=== PATIENT | female | born 1970 | race Caucasian/White ===

== ENCOUNTER 2019-02-21 19:24 | Emergency (ER) | payer OTHER ==
--- NOTE | 2019-02-21 20:06 | Emergency Department Report ---
Blank Doc - Documentation Documentation: 48 y/o female comes in for tingling in hand and weakness.
--- NOTE | 2019-02-21 23:02 | Emergency Department Report ---
ED General Adult HPI - General Chief complaint: Weakness Stated complaint: BODY NUMBED Time Seen by Provider: 02/21/19 21:51 Source: patient Mode of arrival: Ambulatory Limitations: No Limitations - History of Present Illness Initial comments: translated by her son Pt is 48 yo female who presents to the ED with c/o tingling in the bilateral hands that began a month ago. She states that occasionally she also has a tingling sensation in BLE. She states her symptoms feel worse at night. The patient states occasionally she also has some dizziness upon standing. She has no dizziness currently. SHe denies any CP, SOB, fall, trauma, injury, SUN, vision changes, gait disturbance, speech disturbance, back or neck injury, or back or neck pain. Her only PMHx is HTN and she takes telmisartan and hctz. She has not seen a primary care doctor. - Related Data Allergies Allergy/AdvReac Type Severity Reaction Status Date / Time No Known Allergies Allergy Verified 02/21/19 20:13 ED Review of Systems ROS: Stated complaint: BODY NUMBED Other details as noted in HPI Comment: All other systems reviewed and negative ED Past Medical Hx - Past Medical History Previous Medical History?: No - Surgical History Past Surgical History?: No - Social History Smoking Status: Never Smoker Substance Use Type: None ED Physical Exam - General Limitations: No Limitations General appearance: alert, in no apparent distress - Head Head exam: Present: atraumatic, normocephalic - Eye Eye exam: Present: normal appearance, PERRL, EOMI - ENT ENT exam: Present: mucous membranes moist - Neck Neck exam: Present: normal inspection, full ROM. Absent: tenderness - Respiratory Respiratory exam: Present: normal lung sounds bilaterally. Absent: respiratory distress, wheezes, rales, rhonchi, stridor, chest wall tenderness, accessory muscle use, decreased breath sounds, prolonged expiratory - Cardiovascular Cardiovascular Exam: Present: regular rate, normal rhythm, normal heart sounds. Absent: systolic murmur, diastolic murmur, rubs, gallop - Neurological Exam Neurological exam: Present: alert, oriented X3, CN II-XII intact, normal gait, other (normal heel to todd, normal finger to nose, 5/5 strength in the BUE/BLE, sensation intact, no focal neuro deficit, good pulses throughout). Absent: motor sensory deficit - Psychiatric Psychiatric exam: Present: normal affect, normal mood - Skin Skin exam: Present: warm, dry, intact ED Course Vital Signs 02/21/19 02/22/19 19:58 00:52 Temperature 98.3 F Pulse Rate 72 Respiratory 17 17 Rate Blood Pressure 136/82 Blood Pressure 129/84 [Left] O2 Sat by Pulse 96 98 Oximetry ED Medical Decision Making - Radiology Data Radiology results: report reviewed PROCEDURE: CT CERVICAL SPINE WO CON TECHNIQUE: Computerized tomography of the cervical spine was performed from the skull base to T1 without contrast material. CT DOSE LENGTH PRODUCT: 458.8 mGycm HISTORY: dizziness, tingling in the hands/feet COMPARISONS: None . FINDINGS: The alignment of the vertebral segments is normal. The heights of the vertebral bodies and the disc spaces are maintained. No acute fracture or dislocation of the cervical spine. The spinal canal is adequate at all levels. IMPRESSION: Normal CT cervical spine . This document is electronically signed by Laurita Cabrales DO., February 22 2019 12:11:48 AM ET PROCEDURE: CT HEAD/BRAIN WO CON TECHNIQUE: Computerized tomography of the head was performed without contrast material. CT DOSE LENGTH PRODUCT: 805.4 mGycm HISTORY: dizziness, tingling in the hands/feet COMPARISONS: None . FINDINGS: Skull and scalp: Normal . Paranasal sinuses: Normal . Ventricles and subarachnoid spaces: Normal . Cerebrum: No evidence of hemorrhage, acute infarction or mass . Cerebellum and brainstem: No evidence of hemorrhage, acute infarction or mass . Vasculature: Normal . Other: None . ASPECTS: 10 IMPRESSION: Normal Examination . This document is electronically signed by Laurita Cabrales DO., February 22 2019 12:10:19 AM ET - Medical Decision Making translated by her son Pt is 48 yo female who presents to the ED with c/o tingling in the bilateral hands that began a month ago. She states that occasionally she also has a tingling sensation in BLE. She states her symptoms feel worse at night. The patient states occasionally she also has some dizziness upon standing. She has no dizziness currently. SHe denies any CP, SOB, fall, trauma, injury, SUN, vision changes, gait disturbance, speech disturbance, back or neck injury, or back or neck pain. Her only PMHx is HTN and she takes telmisartan and hctz. She has not seen a primary care doctor. VSS. CT head and c-spine with no acute process. Pt has no neuro deficit on examination. Will have pt follow up with a neurologist and PCP in the next 2-3 days. Advised pt to return to the emergency room for any new or worsening symptoms. - Differential Diagnosis neuropathy, paresthesias, mass, MS Critical care attestation.: If time is entered above; I have spent that time in minutes in the direct care of this critically ill patient, excluding procedure time. ED Disposition Clinical Impression: Paresthesia of upper and lower extremities of both sides Disposition: TO HOME OR SELFCARE Is pt being admited?: No Does the pt Need Aspirin: No Condition: Stable Instructions: Paresthesia (ED) Additional Instructions: Please follow up with a primary care doctor in the next 2-3 days. Please follow up with neurology in the next 2-3 days. Return to the emergency room for any new or worsening symptoms. [facility] [Primary Care Provider] - 2-3 Days JAZLYN DEGROOT MD [Referring] - 2-3 Days Time of Disposition: 00:20 Print Language: ITALIAN
--- NOTE | 2019-02-22 00:12 | Cat Scan Report ---
PROCEDURE: CT HEAD/BRAIN WO CON TECHNIQUE: Computerized tomography of the head was performed without contrast material. CT DOSE LENGTH PRODUCT: 805.4 mGycm HISTORY: dizziness, tingling in the hands/feet COMPARISONS: None . FINDINGS: Skull and scalp: Normal . Paranasal sinuses: Normal . Ventricles and subarachnoid spaces: Normal . Cerebrum: No evidence of hemorrhage, acute infarction or mass . Cerebellum and brainstem: No evidence of hemorrhage, acute infarction or mass . Vasculature: Normal . Other: None . ASPECTS: 10 IMPRESSION: Normal Examination . This document is electronically signed by Laurita Cabrales DO., February 22 2019 12:10:19 AM ET
--- NOTE | 2019-02-22 00:13 | Cat Scan Report ---
PROCEDURE: CT CERVICAL SPINE WO CON TECHNIQUE: Computerized tomography of the cervical spine was performed from the skull base to T1 wit hout contrast material. CT DOSE LENGTH PRODUCT: 458.8 mGycm HISTORY: dizziness, tingling in the hands/feet COMPARISONS: None . FINDINGS: The alignment of the vertebral segments is normal. The heights of the vertebral bodies and the disc s paces are maintained. No acute fracture or dislocation of the cervical spine. The spinal canal is dayna quate at all levels. IMPRESSION: Normal CT cervical spine . This document is electronically signed by Laurita Cabrales DO., February 22 2019 12:11:48 AM ET
[2019-02-22 00:53] VITALS: BP 129/84
== END 2019-02-22 00:52 | disposition home or self-care (01) ==
LOC: ED 19:24
DX: R20.2 Paresthesia of skin (principal); R42 Dizziness and giddiness
CPT/HCPCS: 70450; 72125